=== PATIENT | male | born 2000 | race Caucasian/White ===

== ENCOUNTER 2023-08-27 23:50 | Emergency (ER) | payer OTHER ==
[~2023-08-27] VITALS: Ht 182.9 cm; Wt 82.0 kg
[2023-08-28 03:16] LABS: BASO % 0.8 % (0.0-1.0); EOS # 0.3 10^3/uL (0.0-0.5); EOS % 5.7 % (0.0-3.0); HEMATOCRIT 43.3 % (42.0-52.0); HEMOGLOBIN 14.8 g/dl (13.5-17.5); LYMPH # 2.1 10^3/uL (1.5-5.0); LYMPH % 42.5 % (24.0-44.0); MEAN CORPUSCULAR HGB CONC 34.2 g/dl (32.0-36.5); MEAN CORPUSCULAR VOLUME 84.9 fl (80.0-96.0); MONO # 0.5 10^3/uL (0.0-0.8); MONO % 10.7 % (2.0-8.0); NEUTROPHILS % 40.1 % (36.0-66.0); PLATELET COUNT, AUTOMATED 218 10^3/uL (150-450); WHITE BLOOD COUNT 4.9 10^3/uL (4.0-10.0)
[2023-08-28 03:38] LABS: ALBUMIN 4.2 G/DL (3.2-5.2); ALKALINE PHOSPHATASE 102 U/L (46-116); ALT/SGPT 15 U/L (7.0-40); AST/SGOT 15 U/L (<34); BILIRUBIN,TOTAL 0.5 MG/DL (0.3-1.2); BLOOD UREA NITROGEN 21 MG/DL (9-23); CALCIUM LEVEL 9.3 MG/DL (8.5-10.1); CARBON DIOXIDE LEVEL 29 MMOL/L (20-31); CHLORIDE LEVEL 103 MMOL/L (98-107); CREATININE FOR GFR 1.04 MG/DL (0.70-1.30); GLOMERULAR FILTRATION RATE > 60.0 (>60); GLUCOSE, FASTING 90 MG/DL (60-100); POTASSIUM SERUM 4.2 MMOL/L (3.5-5.1); SODIUM LEVEL 138 MMOL/L (136-145); TOTAL PROTEIN 7.1 G/DL (5.7-8.2)
[2023-08-28 11:30] VITALS: BP 128/71; TEMP 96.9; O2SAT 99
== END 2023-08-28 11:45 | disposition home or self-care (01) ==
LOC: M ED 23:50
DX: S31.809A Unspecified open wound of unspecified buttock, initial encounter (principal); Y92.9 Unspecified place or not applicable; Y93.9 Activity, unspecified; Y99.9 Unspecified external cause status